=== PATIENT | male | born 1980 | race Hispanic/Latino ===

== ENCOUNTER 2021-11-19 04:09 | Emergency (ER) | payer OTHER ==
--- NOTE | 2021-11-19 06:44 | ER ---
Nurse's Notes [facility] Name: Van Escobedo Age: 41 yrs Sex: Male : 1980 Arrival Date: 11/19/2021 Time: 04:12 Bed Waiting Private MD: Diagnosis: Presentation: 11/19 04:30 Chief complaint: Patient states: he woke up around 0200 with right sided pain and jb4 difficulty breathing. Coronavirus screen: At this time, the client does not indicate any symptoms associated with coronavirus-19. Ebola Screen: No symptoms or risks identified at this time. Initial Sepsis Screen: Does the patient meet any 2 criteria? No. Patient's initial sepsis screen is negative. Does the patient have a suspected source of infection? No. Patient's initial sepsis screen is negative. Risk Assessment: Do you want to hurt yourself or someone else? Patient reports no desire to harm self or others. Onset of symptoms was November 19, 2021. 04:30 Method Of Arrival: Ambulatory jb4 04:30 Acuity: MINERVA 3 jb4 Triage Assessment: 04:31 General: Appears in no apparent distress. Behavior is calm, cooperative. Pain: jb4 Complains of pain in right side. Neuro: Level of Consciousness is awake, alert, obeys commands, Oriented to person, place, time, situation. Cardiovascular: Capillary refill < 3 seconds Patient's skin is warm and dry. Respiratory: Respiratory effort is even, unlabored, Respiratory pattern is regular. GI: No signs and/or symptoms were reported involving the gastrointestinal system. Derm: Skin is pink, warm \T\ dry. Musculoskeletal: Circulation, motion, and sensation intact. Historical: - Allergies: 04:31 peanuts; jb4 - Home Meds: 04:31 Hydrochlorothiazide Oral [Active]; jb4 - PMHx: 04:31 Hypertensive disorder; jb4 - PSHx: 04:31 None; jb4 - Immunization history:: Pfizer x 3. - Social history:: Smoking status: Patient reports the use of cigarette tobacco products, Patient uses alcohol, but reports only rare drinking. Patient/guardian denies using street drugs. Vital Signs: 04:30 BP 170 / 130; Pulse 81; Resp 18 S; Temp 98.3(O); Pulse Ox 100% on R/A; Weight 89.81 kg jb4 (R); Height 5 ft. 10 in. (177.80 cm) (R); Pain 5/10; 04:30 Body Mass Index 28.41 (89.81 kg, 177.80 cm) jb4 ED Course: 04:12 Patient arrived in ED. bp1 04:31 Triage completed. jb4 04:31 Arm band placed on Patient placed in waiting room, Patient notified of wait time. jb4 06:43 Patient's name was called from ER lobby. No response. Unable to locate patient. Will bb disposition as left without being seen by a provider. Administered Medications: No medications were administered Outcome: 06:43 Patient left the ED. bb Signatures: Veronica Rivera RN RN bb Phillip Knapp RN RN jb4 Daisy Knutson bp1 Corrections: (The following items were deleted from the chart) 04:32 04:31 Allergies: No Known Allergies; jb4 jb4
[2021-11-19 07:01] VITALS: BP 170/130; TEMP 98.3; O2SAT 100
== END 2021-11-19 06:43 | disposition left against medical advice (07) ==
LOC: ER 04:09
DX: R06.02 Shortness of breath (principal); I10 Essential (primary) hypertension; F17.210 Nicotine dependence, cigarettes, uncomplicated; Z53.21 Procedure and treatment not carried out due to patient leaving prior to being seen by health care provider
CPT/HCPCS: 99281

== ENCOUNTER 2023-02-19 20:33 | Emergency (ER) | payer OTHER ==
[2023-02-19] MEDS ORDERED: predniSONE 20 MG TAB ONE (21:06)
[2023-02-19 21:48] LABS: SARS-CoV-2 Antigen Rapid Res Negative (Negative)
--- NOTE | 2023-02-19 22:49 | ER ---
Nurse's Notes [facility] Name: Van Escobedo Age: 42 yrs Sex: Male : 1980 Arrival Date: 02/19/2023 Time: 20:33 Bed 13 Private MD: Diagnosis: Influenza due to other identified influenza virus with other respiratory manifestations Presentation: 02/19 21:06 Chief complaint: Patient states: sore throat and hoarseness that started today. as6 Coronavirus screen: At this time, the client does not indicate any symptoms associated with coronavirus-19. Ebola Screen: No symptoms or risks identified at this time. Initial Sepsis Screen: Does the patient meet any 2 criteria? No. Patient's initial sepsis screen is negative. Does the patient have a suspected source of infection? No. Patient's initial sepsis screen is negative. Risk Assessment: Do you want to hurt yourself or someone else? Patient reports no desire to harm self or others. Onset of symptoms was February 19, 2023. 21:06 Method Of Arrival: Ambulatory as6 21:06 Acuity: MINERVA 4 as6 Triage Assessment: 21:10 General: Appears in no apparent distress. Behavior is calm, cooperative, appropriate as6 for age. Pain: Complains of pain in throat. EENT: Reports pain when swallowing. Respiratory: Airway is patent Trachea midline Respiratory effort is even, unlabored, Respiratory pattern is regular, symmetrical. Historical: - Allergies: 21:07 peanuts; as6 - PMHx: 21:07 Hypertensive disorder; as6 - PSHx: 21:07 None; as6 - Immunization history:: Client reports receiving the 2nd dose of the Covid vaccine, pfizer. - Social history:: Smoking status: Patient reports the use of cigarette tobacco products, denies chronic smoking, but will smoke occasionally. - Family history:: not pertinent. - Hospitalizations: : No recent hospitalization is reported. Screenin:41 [facility] ED Fall Risk Assessment (Adult) Score/Fall Risk Level 0 - 2 = Low Risk. Abuse as6 screen: Denies threats or abuse. Denies injuries from another. Nutritional screening: No deficits noted. Tuberculosis screening: No symptoms or risk factors identified. Assessment: 23:23 General: Appears comfortable, well groomed, well developed, well nourished, Behavior is me1 calm, cooperative, appropriate for age, Reports feeling ill for sore throat and hoarseness that started today. Pain: Complains of pain in throat Pain currently is 5 out of 10 on a pain scale. Quality of pain is described as burning, tender, Pain began gradually, 4 hours ago. Is continuous. Neuro: Level of Consciousness is awake, alert, obeys commands, Oriented to person, place, time, situation, Appropriate for age. Cardiovascular: Capillary refill < 3 seconds Patient's skin is warm and dry. Respiratory: Airway is patent Respiratory effort is even, unlabored, Respiratory pattern is regular, symmetrical. Vital Signs: 21:06 BP 207 / 146; Pulse 94; Resp 18; Temp 99; Pulse Ox 94% ; Weight 94.35 kg; Height 5 ft. as6 10 in. ; Pain 0/10; 23:25 BP 187 / 106; Pulse 98; Resp 18; Pulse Ox 97% on R/A; me1 21:06 Body Mass Index 29.84 (94.35 kg, 177.8 cm) as6 21:06 Pain Scale: Adult as6 ED Course: 20:36 Patient arrived in ED. mr 20:43 Jose Tony MD is Attending Physician. rn 21:07 Triage completed. as6 21:07 Arm band placed on. as6 21:08 SARS RAPID Sent. as6 21:08 Strep Sent. as6 21:08 Flu Sent. as6 22:20 Jammie Ahumada, RN is Primary Nurse. me1 22:41 Bed in low position. Call light in reach. as6 23:23 Provided Education on: POC. Verbalized understanding.. me1 23:23 No provider procedures requiring assistance completed. Patient did not have IV access me1 during this emergency room visit. Administered Medications: 20:56 Drug: predniSONE PO 40 mg Route: PO; as6 23:08 Follow up: Response: No adverse reaction me1 23:08 Drug: Oseltamivir PO 75 mg Route: PO; me1 23:22 Follow up: Response: No adverse reaction me1 Medication: 23:23 VIS not applicable for this client. me1 Outcome: 22:49 Discharge ordered by . rn 23:25 Discharged to home ambulatory. me1 23:25 Condition: stable 23:25 Discharge instructions given to patient, Instructed on discharge instructions, follow up and referral plans. medication usage, Demonstrated understanding of instructions, follow-up care, medications, Prescriptions given X 1. 23:27 Patient left the ED. me1 Signatures: Irina Taveras Roman, MD MD rn Slawson, Ashby, RN RN as6 Jammie Ahumada RN RN me1
--- NOTE | 2023-02-19 22:49 | EDPHYS ---
Physician Documentation [facility] Name: Van Escobedo Age: 42 yrs Sex: Male : 1980 Arrival Date: 02/19/2023 Time: 20:33 Bed 13 Private MD: ED Physician Jose Tony HPI: 02/19 20:49 This 42 yrs old Male presents to ER via Unassigned with complaints of Sore rn Throat, Loss Voice. 20:49 The patient presents with sore throat. The patient describes throat pain as raw, rn scratchy. Onset: The symptoms/episode began/occurred yesterday. Severity of symptoms: At their worst the symptoms were mild, in the emergency department the symptoms are unchanged. Modifying factors: The symptoms are alleviated by nothing, the symptoms are aggravated by swallowing. The patient has not experienced similar symptoms in the past. 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 Has had a sore throat and itchy throat since yesterday. Able to breathe and swallow but a little discomfort when swallowing. Denies fever or cough. States COVID test at work was negative.. Historical: - Allergies: 21:07 peanuts; as6 - PMHx: 21:07 Hypertensive disorder; as6 - PSHx: 21:07 None; as6 - Immunization history:: Client reports receiving the 2nd dose of the Covid vaccine, pfizer. - Social history:: Smoking status: Patient reports the use of cigarette tobacco products, denies chronic smoking, but will smoke occasionally. - Family history:: not pertinent. - Hospitalizations: : No recent hospitalization is reported. ROS: 20:49 Constitutional: Negative for fever, chills, and weight loss, Eyes: Negative for injury, rn pain, redness, and discharge, ENT: Positive for sore throat Cardiovascular: Negative for chest pain, palpitations, and edema, Respiratory: Negative for shortness of breath, cough, wheezing, and pleuritic chest pain, Abdomen/GI: Negative for abdominal pain, nausea, vomiting, diarrhea, and constipation, MS/Extremity: Negative for injury and deformity, Skin: Negative for injury, rash, and discoloration, Neuro: Negative for headache, weakness, numbness, tingling, and seizure. Exam: 20:49 Constitutional: This is a well developed, well nourished patient who is awake, alert, rn and in no acute distress. Head/Face: Normocephalic, atraumatic. ENT: Mild pharyngeal erythema, no stridor, uvula midline Neck: Nontender cervical lymphadenopathy. No meningismus Cardiovascular: Regular rate and rhythm. No pulse deficits. Respiratory: No increased work of breathing, no retractions or nasal flaring. Skin: Warm, dry MS/ Extremity: Pulses equal, no cyanosis. Neuro: Awake and alert, GCS 15 Vital Signs: 21:06 BP 207 / 146; Pulse 94; Resp 18; Temp 99; Pulse Ox 94% ; Weight 94.35 kg; Height 5 ft. as6 10 in. ; Pain 0/10; 23:25 BP 187 / 106; Pulse 98; Resp 18; Pulse Ox 97% on R/A; me1 21:06 Body Mass Index 29.84 (94.35 kg, 177.8 cm) as6 21:06 Pain Scale: Adult as6 MDM: 20:43 Patient medically screened. rn 22:48 Differential diagnosis: group A strep tonsillitis, influenza, laryngitis, pharyngitis, rn upper respiratory infection, viral syndrome. Data reviewed: vital signs, nurses notes, lab test result(s), and as a result, I will discharge patient. Counseling: I had a detailed discussion with the patient and/or guardian regarding the historical points, exam findings, and any diagnostic results supporting the discharge/admit diagnosis, lab results, the need for outpatient follow up, to return to the emergency department if symptoms worsen or persist or if there are any questions or concerns that arise at home. Special discussion: I discussed with the patient/guardian in detail that at this point there is no indication for admission to the hospital. It is understood, however, that if the symptoms persist or worsen the patient needs to return immediately for re-evaluation. 02/19 20:47 Order name: SARS RAPID; Complete Time: 22:46 as6 02/19 20:47 Order name: Strep as02/19 20:47 Order name: Flu; Complete Time: 22:46 02/19 21:48 Order name: Throat Culture EDMS Administered Medications: 20:56 Drug: predniSONE PO 40 mg Route: PO; as6 23:08 Follow up: Response: No adverse reaction me1 23:08 Drug: Oseltamivir PO 75 mg Route: PO; me1 23:22 Follow up: Response: No adverse reaction me1 Disposition Summary: 02/19/23 22:49 Discharge Ordered Location: Home rn Problem: new rn Symptoms: have improved rn Condition: Stable rn Diagnosis - Influenza due to other identified influenza virus with other respiratory rn manifestations Followup: rn - With: Private Physician - When: As needed - Reason: Recheck today's complaints, Re-evaluation by your physician Discharge Instructions: - Discharge Summary Sheet rn - Influenza, Adult rn Forms: - Medication Reconciliation Form rn - Thank You Letter rn - Antibiotic rn neurosurgical - Prescription Opioid Use rn - Patient Portal Instructions rn - Leadership Thank You Letter rn - Work release form me1 Prescriptions: - Tamiflu 75 mg Oral Capsule - take 1 tablet by ORAL route every 12 hours for 5 days; 10 tablet; Refills: 0, rn Product Selection Permitted Signatures: Dispatcher [employer] Jose Soares MD MD rn Slawson, Ashby RN RN as6 Jammie Ahumada RN RN me1
[2023-02-19] MEDS ORDERED: OSELTAMIVIR 75 MG CAP PO ONE (23:13)
[2023-02-20 00:19] VITALS: TEMP 99
[2023-02-20 00:20] VITALS: BP 187/106; O2SAT 97
== END 2023-02-19 23:27 | disposition home or self-care (01) ==
LOC: ER 20:33
DX: J10.1 Influenza due to other identified influenza virus with other respiratory manifestations (principal); Z20.822 Contact with and (suspected) exposure to COVID-19
CPT/HCPCS: 87070; 36415; 87081; 87804 ×2; 87811; J7512; 99283

== ENCOUNTER → 2023-07-29 | Emergency (ER) | payer OTHER ==
[~2023-07-29] MED LIST: ASPIRIN 81 MG CHEWABLE TABLET ONE; LORazepam 2 MG/ML VIAL ONE
[2023-07-29 08:14] LABS: Absolute Lymphocytes (CBC) 2.3 K/uL (0.7-4.9); Hematocrit 38.5 % (39.6-49.0); Lymphocytes % 30.1 % (15.3-44.8); MCV 87.3 fL (80-100); MPV 7.5 fL (7.6-11.3); Platelets 327 thou/uL (152-406); RBC Red Blood Cell Count 4.41 M/uL (4.33-5.43)
[2023-07-29 08:33] LABS: Magnesium 2.3 mg/dL (1.6-2.4); Potassium 3.9 mEq/L (3.5-5.1); Troponin High Sensitivity 4.3 pg/mL (<58.9)
--- NOTE | 2023-07-29 10:58 | RAD REPORT ---
EXAM DESCRIPTION: RAD - Chest Single View - 07/29/2023 8:53 am CLINICAL HISTORY: CHEST PAIN Chest pain. COMPARISON: No comparisons FINDINGS: Portable technique limits examination quality. The lungs are grossly clear. The heart is normal in size. No displaced fractures. IMPRESSION: No acute intrathoracic process suspected.
--- NOTE | 2023-07-29 11:09 | ER ---
Nurse's Notes [facility] Name: Van Escobedo Age: 43 yrs Sex: Male : 1980 Arrival Date: 07/29/2023 Time: 07:47 Bed 18 Private MD: Diagnosis: Chest pain, unspecified Presentation: 07/29 07:54 Chief complaint: Patient states: Mid CP with SOB awoke him out of sleep mat 0430 AM. No ll1 fever or cough. Coronavirus screen: Client denies travel out of the [place] in the last 14 days. difficulty breathing, muscle pain, shortness of breath, Client presents with at least one sign or symptom that may indicate coronavirus-19. Standard/surgical mask placed on the client. Ebola Screen: Patient denies travel to an Ebola-affected area in the 21 days before illness onset. Initial Sepsis Screen: Does the patient meet any 2 criteria? No. Patient's initial sepsis screen is negative. Does the patient have a suspected source of infection? No. Patient's initial sepsis screen is negative. Risk Assessment: Do you want to hurt yourself or someone else? Patient reports no desire to harm self or others. Onset of symptoms was July 29, 2023. 07:54 Method Of Arrival: Ambulatory ll1 07:54 Acuity: MINERVA 3 ll1 Triage Assessment: 07:56 General: Appears uncomfortable, Behavior is cooperative, appropriate for age. Pain: ll1 Complains of pain in mid chest Quality of pain is described as aching. Cardiovascular: Reports chest pain, shortness of breath. Historical: - Allergies: 07:54 peanuts; ll1 - PMHx: 07:54 Hypertensive disorder; Hypercholesterolemia; ll1 - Immunization history:: Adult Immunizations up to date. - Social history:: Smoking status: Reported history of juuling and/or vaping. Screenin:02 [facility] ED Fall Risk Assessment (Adult) History of falling in the last 3 months, mb9 including since admission No falls in past 3 months (0 pts) Confusion or Disorientation No (0 pts) Intoxicated or Sedated No (0 pts) Impaired Gait No (0 pts) Mobility Assist Device Used No (0 pt) Altered Elimination No (0 pt) Score/Fall Risk Level 0 - 2 = Low Risk Oriented to surroundings, Maintained a safe environment, Educated pt \T\ family on fall prevention, incl call for assistance when getting out of bed. Abuse screen: Denies threats or abuse. Nutritional screening: No deficits noted. Tuberculosis screening: No symptoms or risk factors identified. Assessment: 08:03 General: Appears uncomfortable, Behavior is anxious. Pain: Complains of pain in chest mb9 Pain does not radiate. Pain currently is 7 out of 10 on a pain scale. Quality of pain is described as heavy, pressure, Pain began suddenly, Is continuous. Neuro: [place] Agitation-Sedation Scale (RASS): 0 - Alert and Calm Level of Consciousness is awake, alert, obeys commands, Oriented to person, place, time, situation, Appropriate for age. Cardiovascular: Reports chest pain, shortness of breath, Heart tones S1 S2 present Patient's skin is warm and dry. Rhythm is regular. Respiratory: Reports shortness of breath Airway is patent Respiratory effort is even, unlabored, Respiratory pattern is regular, symmetrical, Breath sounds are clear bilaterally. GI: Abdomen is round non-distended, Bowel sounds present X 4 quads. Abd is soft and non tender X 4 quads. Patient currently denies nausea. : No signs and/or symptoms were reported regarding the genitourinary system. EENT: No signs and/or symptoms were reported regarding the EENT system. Derm: Skin is pink, warm \T\ dry. Musculoskeletal: Range of motion: intact in all extremities. 09:06 Reassessment: Patient and/or family updated on plan of care and expected duration. Pain mb9 level reassessed. Patient is alert, oriented x 3, equal unlabored respirations, skin warm/dry/pink. Patient states feeling better. Patient states symptoms have improved. 10:45 Reassessment: No changes from previously documented assessment. Patient and/or family mb9 updated on plan of care and expected duration. Pain level reassessed. Patient is alert, oriented x 3, equal unlabored respirations, skin warm/dry/pink. 11:14 Reassessment: Patient and/or family updated on plan of care and expected duration. Pain mb9 level reassessed. Patient is alert, oriented x 3, equal unlabored respirations, skin warm/dry/pink. Patient states feeling better. Patient states symptoms have improved. Vital Signs: 07:54 BP 178 / 120; Pulse 71; Resp 22; Temp 97.8; Pulse Ox 100% on R/A; Pain 7/10; ll1 08:04 Weight 99.79 kg; Height 5 ft. 9 in. ; mb9 08:30 BP 159 / 123; Pulse 58; Resp 16; Pulse Ox 100% on R/A; mb9 09:44 BP 141 / 111; Pulse 60; Resp 18; Pulse Ox 100% on R/A; mb9 11:14 BP 138 / 98; Pulse 62; Resp 18; Pulse Ox 100% on R/A; mb9 08:04 Body Mass Index 32.49 (99.79 kg, 175.26 cm) mb9 07:54 Pain Scale: Adult ll1 ED Course: 07:49 Patient arrived in ED. rg4 07:50 Paresh Adame DO is Attending Physician. ms3 07:50 EKG done, by ED staff, reviewed by Paresh Adame DO. Inserted saline lock: 18 gauge in mb9 right antecubital area, using aseptic technique. Blood collected. 07:51 Irina Morris, RN is Primary Nurse. mb9 07:54 Arm band placed on Patient placed in an exam room, on a stretcher. ll1 07:56 Triage completed. ll1 08:03 Placed in gown. Bed in low position. Call light in reach. Side rails up X 1. Client mb9 placed on continuous cardiac and pulse oximetry monitoring. NIBP monitoring applied. surveillance monitor on. 08:03 No provider procedures requiring assistance completed. Patient maintains SpO2 mb9 saturation greater than 95% on room air. 08:55 XRAY Chest (1 view) In Process Unspecified. EDMS 11:09 IV discontinued, intact, bleeding controlled, No redness/swelling at site. Pressure mb9 dressing applied. Administered Medications: 08:09 Drug: Aspirin PO Chewable Tablet 324 mg PO once; 81 mg tablets x 4 Route: PO; mb9 09:44 Follow up: Response: No adverse reaction mb9 11:07 Not Given (Physician Discretion): ativan1 mg IVP once mb9 Medication: 08:05 VIS not applicable for this client. mb9 Outcome: 11:08 Discharge ordered by . ms3 11:14 Discharged to home ambulatory, mb9 11:14 Condition: stable 11:14 Discharge instructions given to patient, Instructed on discharge instructions, follow up and referral plans. Demonstrated understanding of instructions, follow-up care, 11:14 Patient left the ED. mb9 Signatures: Dispatcher [employer] EDMS Elaina Correa rg4 Raz Melendez RN RN ll1 Paresh Adame DO DO ms3 Irina Morris, RN RN mb9 Corrections: (The following items were deleted from the chart) 08:02 07:54 Pulse 71bpm; Resp 22bpm; Pulse Ox 100% RA; Temp 97.8F; Pain 7/10, Adult; ll1 ll1 08:30 08:16 BP 165 / 125; Pulse 64bpm; Resp 18bpm; Pulse Ox 100% RA; mb9 mb9
--- NOTE | 2023-07-29 11:09 | EDPHYS ---
Physician Documentation [facility] Name: Van Escobedo Age: 43 yrs Sex: Male : 1980 Arrival Date: 07/29/2023 Time: 07:47 Bed 18 Private MD: ED Physician Paresh Adame HPI: 07/29 08:10 This 43 yrs old Male presents to ER via Ambulatory with complaints of Chest ms3 Pain. 08:10 43-year-old male with past medical history of hypertension, hyperlipidemia [place] [facility] [place] for chest pain that began at 430 that awoke him from sleep. Patient states pain is a 7/10 located the middle of his chest. Patient denies nausea or vomiting. Patient endorses shortness of breath. Patient states sitting makes his discomfort better. Patient denies inciting factors. Historical: - Allergies: 07:54 peanuts; ll1 - PMHx: 07:54 Hypertensive disorder; Hypercholesterolemia; ll1 - Immunization history:: Adult Immunizations up to date. - Social history:: Smoking status: Reported history of juuling and/or vaping. ROS: 08:10 Constitutional: Negative for fever, and chills. Neck: Negative for injury, pain, and ms3 swelling, 08:10 Abdomen/GI: Negative for abdominal pain, nausea, vomiting, diarrhea, and constipation, MS/Extremity: Negative for injury and deformity, 08:10 Skin: Negative for injury, rash, and discoloration, Neuro: Negative for headache, weakness, numbness, tingling. 08:10 Cardiovascular: Positive for chest pain, 08:10 Respiratory: Positive for shortness of breath, Exam: 08:10 Constitutional: This is a well developed, well nourished patient who is awake, alert, ms3 and in no acute distress. Head/Face: Normocephalic, atraumatic. Eyes: Pupils equal round and reactive to light, extra-ocular motions intact. Lids and lashes normal. Conjunctiva and sclera are non-icteric and not injected. Periorbital areas with no swelling, redness, or edema. Neck: Trachea midline, no cervical lymphadenopathy. Supple, full range of motion without nuchal rigidity, or vertebral point tenderness. No Meningismus. Chest/axilla: Normal chest wall appearance and motion. Nontender with no deformity. Cardiovascular: Regular rate and rhythm with a normal S1 and S2. No gallops, murmurs, or rubs. Normal PMI, no JVD. No pulse deficits. Respiratory: Lungs have equal breath sounds bilaterally, clear to auscultation and percussion. No rales, rhonchi or wheezes noted. No increased work of breathing, no retractions or nasal flaring. Abdomen/GI: Soft, non-tender, with normal bowel sounds. No distension or tympany. No guarding or rebound. No evidence of tenderness throughout. Skin: Warm, dry with normal turgor. Normal color with no rashes, no lesions, and no evidence of cellulitis. MS/ Extremity: Pulses equal, no cyanosis. Neurovascular intact. Full, normal range of motion. 08:10 ECG was reviewed by the Attending Physician. Vital Signs: 07:54 BP 178 / 120; Pulse 71; Resp 22; Temp 97.8; Pulse Ox 100% on R/A; Pain 7/10; ll1 08:04 Weight 99.79 kg; Height 5 ft. 9 in. ; mb9 08:30 BP 159 / 123; Pulse 58; Resp 16; Pulse Ox 100% on R/A; mb9 09:44 BP 141 / 111; Pulse 60; Resp 18; Pulse Ox 100% on R/A; mb9 11:14 BP 138 / 98; Pulse 62; Resp 18; Pulse Ox 100% on R/A; mb9 08:04 Body Mass Index 32.49 (99.79 kg, 175.26 cm) mb9 07:54 Pain Scale: Adult ll1 MDM: 08:04 Patient medically screened. ms3 08:10 Differential diagnosis: acute myocardial infarction, coronary artery disease chest wall ms3 pain, pulmonary embolus. The patient was given aspirin in the Emergency Department. Scoring Tools PERC Rule for PE Age > /= 50 No (0) HR > /= 100 No (0) O2 Sat Room Air < 95% No (0) Unilateral leg swelling No (0) Hemoptysis No (0) Recent surgery or trauma </= 4 weeks ago, requiring treatment with General Anesthesia No (0) Prior PE or DVT No (0) Hormone use No (0). 11:08 HEART Score: History: Slightly Suspicious (0), ECG: Normal (0), Age: < or = 45 years ms3 (0), Risk Factors: 1 or 2 risk factors (1), [Hypercholesterolemia] [Hypertension] Troponin: < or = 1 x Normal Limit (0), Total Score = 1. Data reviewed: vital signs, nurses notes, lab test result(s), EKG, radiologic studies, and as a result, I will discharge patient. Consideration of Admission/Observation Escalation of care including admission/observation considered. HEART score = 1. I considered the following discharge prescriptions or medication management in the emergency department Medications were administered in the Emergency Department. See MAR. Independent interpretation of the following test(s) in the Emergency Department EKG: See my EKG interpretation above X-Ray: My interpretation is CXR image reviewed by me does not reveal pna or pulmonary edema. Care significantly affected by the following chronic conditions: Hypertension. Counseling: I had a detailed discussion with the patient and/or guardian regarding the historical points, exam findings, and any diagnostic results supporting the discharge/admit diagnosis, lab results, radiology results, the need for outpatient follow up, to return to the emergency department if symptoms worsen or persist or if there are any questions or concerns that arise at home. Special discussion: Based on the patient's history, exam, and Dx evaluation, there is no indication for emergent intervention or inpatient Tx. It is understood by the patient/guardian that if the Sx's persist or worsen they need to return immediately for re-evaluation. ED course: Discussed labs, chest x-ray, EKG with patient and his mother. Patient follow-up with primary care physician in 2 to 3 days. They understand and agree with plan. All questions were answered. Return precautions discussed include worsening symptoms, or any other concerns. On reevaluation patient is alert and orient x 4, no apparent distress, nontoxic-appearing, ambulatory in emergency room, speaking full sentences. 07/29 08:04 Order name: Basic Metabolic Panel; Complete Time: 08:34 ms3 07/29 08:04 Order name: CBC with Diff; Complete Time: 08:34 ms3 07/29 08:04 Order name: Magnesium; Complete Time: 08:34 ms3 07/29 08:04 Order name: Troponin HS; Complete Time: 08:34 ms3 07/29 08:04 Order name: XRAY Chest (1 view); Complete Time: 11:02 ms3 07/29 08:04 Order name: EKG; Complete Time: 08:04 ms3 07/29 08:04 Order name: Cardiac monitoring; Complete Time: 08:05 ms3 07/29 08:04 Order name: EKG - Nurse/Tech; Complete Time: 08:05 ms3 07/29 08:04 Order name: IV Saline Lock; Complete Time: 08:05 ms3 07/29 08:04 Order name: Labs collected and sent; Complete Time: 08:05 ms3 07/29 08:04 Order name: O2 Per Protocol; Complete Time: 08:05 ms3 07/29 08:04 Order name: O2 Sat Monitoring; Complete Time: 08:05 ms3 EC:10 Rhythm is regular. QRS [place] is Normal. [place] interval is normal. QRS interval is normal. ms3 Clinical impression: Normal ECG. Interpreted by me. Reviewed by me. Administered Medications: 08:09 Drug: Aspirin PO Chewable Tablet 324 mg PO once; 81 mg tablets x 4 Route: PO; mb9 09:44 Follow up: Response: No adverse reaction mb9 11:07 Not Given (Physician Discretion): ativan1 mg IVP once mb9 Disposition Summary: 07/29/23 11:08 Discharge Ordered Notes: Location: Home ms3 Condition: Stable ms3 Diagnosis - Chest pain, unspecified ms3 Discharge Instructions: - Discharge Summary Sheet ms3 - Nonspecific Chest Pain, Adult ms3 Forms: - Medication Reconciliation Form ms3 - Thank You Letter ms3 - Antibiotic Education ms3 - Prescription Opioid Use ms3 - Patient Portal Instructions ms3 - Leadership Thank You Letter ms3 Signatures: Dispatcher [employer] Raz Das RN RN ll1 Paresh Adame DO DO ms3 Irina Morris RN RN mb9
[2023-07-29 11:39] VITALS: BP 138/98; TEMP 97.8; O2SAT 100
== END ==
LOC: ER 07:47
DX: R07.9 Chest pain, unspecified (principal); I10 Essential (primary) hypertension; Z91.010 Allergy to peanuts
CPT/HCPCS: 36415; 71045; 80048; 83735; 84484; 85025; 93005

== ENCOUNTER 2023-09-08 02:54 | Emergency (ER) | payer OTHER ==
[2023-09-08] MEDS ORDERED: ONDANSETRON 4 MG/2 ML VIAL ONE (03:04)
[2023-09-08] MEDS ORDERED: MORPHINE 4 MG/ML SYR ONE (03:05)
[2023-09-08] MEDS ORDERED: FAMOTIDINE 20 MG/2 ML VIAL IV ONE (03:05)
[2023-09-08 03:36] LABS: Absolute Eosinophils 0.1 K/uL (0-0.5); Absolute Monocytes 0.5 K/uL (0.1-1.3); Absolute Neutrophil 5.3 K/uL (1.8-8.0); Basophils % 0.5 % (0-1.3); Eosinophils % 1.6 % (0-4.4); Hemoglobin 12.4 g/dL (13.6-17.9); Lymphocytes % 33.7 % (15.3-44.8); MCH 29.8 pg (27.0-35.0); MCHC 34.3 g/dL (32.0-36.0); MCV 86.9 fL (80-100); MPV 8.2 fL (7.6-11.3); Monocytes % 5.9 % (3.3-12.3); Neutrophils % 58.3 % (41.7-73.7); Platelets 332 thou/uL (152-406); RBC Red Blood Cell Count 4.15 M/uL (4.33-5.43); Red Cell Distribution Width 13.5 % (12.1-15.2)
[2023-09-08 03:48] LABS: PT Prothrombin Time 10.1 SECONDS (9.5-12.5); Protime INR 0.92
[2023-09-08 03:59] LABS: Anion Gap 9.2 mEq/L (5.0-15.0); Potassium 3.2 mEq/L (3.5-5.1); Troponin High Sensitivity 3.7 pg/mL (<58.9)
--- NOTE | 2023-09-08 05:53 | ER ---
Nurse's Notes [facility] Name: Van Escboedo Age: 43 yrs Sex: Male : 1980 Arrival Date: 09/08/2023 Time: 02:54 Bed 4 Private MD: Diagnosis: Chest pain, unspecified Presentation: 09/07 03:00 Chief complaint: Patient states: intermittent squeezing substernal chest pain of 8 with pf1 SOB,onset 0200. Patient stated the pain started while sleeping. 03:00 Coronavirus screen: Client denies travel out of the [place] in the last 14 days. At this pf1 time, the client does not indicate any symptoms associated with coronavirus-19. Ebola Screen: Patient negative for fever greater than or equal to 101.5 degrees Fahrenheit, and additional compatible Ebola Virus Disease symptoms. Initial Sepsis Screen: Does the patient meet any 2 criteria? No. Patient's initial sepsis screen is negative. Does the patient have a suspected source of infection? No. Patient's initial sepsis screen is negative. Risk Assessment: Do you want to hurt yourself or someone else? Patient reports no desire to harm self or others. Onset of symptoms was September 08, 2023 at 02:00. 03:00 Method Of Arrival: Wheelchair pf1 03:00 Acuity: MINERVA 2 pf1 Triage Assessment: 03:00 General: Appears in no apparent distress. uncomfortable, well groomed, well developed, pf1 Behavior is cooperative, anxious. 03:00 Pain: Complains of pain in chest. Cardiovascular: Reports chest pain, shortness of pf1 breath, Capillary refill < 3 seconds Patient's skin is warm and dry. Respiratory: Reports shortness of breath with Chest pain. Historical: - Allergies: 03:08 peanuts; pf1 - PMHx: 03:08 Hypercholesterolemia; Hypertensive disorder; pf1 - PSHx: 03:08 None; pf1 - Immunization history:: Adult Immunizations up to date, 3 doses of pfizer Last tetanus immunization: < 5 years ago Flu vaccine is not up to date. - Social history:: Smoking status: Patient reports the use of cigarette tobacco products, denies chronic smoking, but will smoke occasionally, Patient uses alcohol, occasionally. Patient/guardian denies using street drugs. - Family history:: not pertinent. - Hospitalizations: : No recent hospitalization is reported. Screenin:18 [facility] ED Fall Risk Assessment (Adult) History of falling in the last 3 months, ha1 including since admission No falls in past 3 months (0 pts) Confusion or Disorientation No (0 pts) Intoxicated or Sedated No (0 pts) Impaired Gait No (0 pts) Mobility Assist Device Used No (0 pt) Altered Elimination No (0 pt) Score/Fall Risk Level 0 - 2 = Low Risk Oriented to surroundings, Maintained a safe environment, Educated pt \T\ family on fall prevention, incl call for assistance when getting out of bed, Hourly rounding (assess needs \T\ fall precautionary measures) done. Abuse screen: Denies threats or abuse. Denies injuries from another. Nutritional screening: No deficits noted. Tuberculosis screening: No symptoms or risk factors identified. Assessment: 03:00 General: Appears uncomfortable, Behavior is calm, cooperative. Pain: Complains of pain ha1 in anterior aspect of right upper chest Pain does not radiate. Pain currently is 8 out of 10 on a pain scale. Quality of pain is described as stabbing, throbbing, Pain began suddenly, 1 hour ago. Is continuous. Neuro: Level of Consciousness is awake, alert, obeys commands, Oriented to person, place, time, situation. Cardiovascular: Reports chest pain, Capillary refill < 3 seconds Patient's skin is warm and dry. Rhythm is sinus rhythm. Respiratory: Airway is patent Respiratory effort is even, unlabored, Respiratory pattern is regular, symmetrical. GI: No signs and/or symptoms were reported involving the gastrointestinal system. : No signs and/or symptoms were reported regarding the genitourinary system. Derm: Skin is pink, warm \T\ dry. Musculoskeletal: Circulation, motion, and sensation intact. Range of motion: intact in all extremities. 03:50 Reassessment: Patient and/or family updated on plan of care and expected duration. Pain ha1 level reassessed. Patient is alert, oriented x 3, equal unlabored respirations, skin warm/dry/pink. pain 5/10 Patient states feeling better. Patient states symptoms have improved. 05:00 Reassessment: Patient and/or family updated on plan of care and expected duration. Pain ha1 level reassessed. Patient is alert, oriented x 3, equal unlabored respirations, skin warm/dry/pink. Patient states feeling better. Patient states symptoms have improved. Vital Signs: 03:00 BP 164 / 120; Pulse 91; Resp 20; Temp 98; Pulse Ox 99% on R/A; Weight 102.06 kg; Height pf1 5 ft. 10 in. ; Pain 8/10; 03:14 BP 147 / 114; Pulse 85; Resp 17 S; Pulse Ox 99% on R/A; ha1 03:50 BP 149 / 114; Pulse 78; Resp 17 S; Pulse Ox 96% on R/A; ha1 03:00 Body Mass Index 32.28 (102.06 kg, 177.8 cm) pf1 03:00 Pain Scale: Adult pf1 ED Course: 02:47 EKG done, by ED staff, reviewed by Jose Tony MD. pf1 03:00 Patient arrived in ED. rn 03:00 Jose Tony MD is Attending Physician. rn 03:00 Patient has correct armband on for positive identification. Placed in gown. Bed in low ha1 position. Call light in reach. Side rails up X 1. 03:00 Arm band placed on right wrist. ha1 03:06 Client placed on continuous cardiac and pulse oximetry monitoring. NIBP monitoring kmf applied. property assessment monitor on. 03:06 Initial lab(s) drawn, by me, sent to lab. Inserted saline lock: 20 gauge in left kmf antecubital area, using aseptic technique. Blood collected. 03:08 Triage completed. pf1 03:12 XRAY Chest (1 view) In Process Unspecified. EDMS 03:13 Basic Metabolic Panel Sent. ha1 03:13 CBC with Diff Sent. ha1 03:13 NT PRO-BNP Sent. ha1 03:13 PT-INR Sent. ha1 03:13 Troponin HS Sent. ha1 03:18 Provided Education on: medication administration . ha1 03:[address] via stretcher. cm10 04:05 CT Chest For PE Angio In Process Unspecified. EDMS 04:[address] Patient [address] back from [address]. cm10 06:45 No provider procedures requiring assistance completed. IV discontinued, intact, jw7 bleeding controlled, No redness/swelling at site. Pressure dressing applied. Administered Medications: 03:08 Drug: Famotidine IVP 20 mg IVP once; dilute with 10 mL 0.9% NaCl; give over 2 minutes ha1 Route: IVP; Site: left antecubital; 06:45 Follow up: Response: No adverse reaction; Marked relief of symptoms jw7 03:10 Drug: Ondansetron IVP 4 mg IVP once; over 2 minutes Route: IVP; Site: left antecubital; ha1 06:45 Follow up: Response: No adverse reaction; Marked relief of symptoms jw7 03:12 Drug: morphine IVP or IV 4 mg IVP once over 4 mins Route: IVP; Infused Over: 4 mins; ha1 Site: left antecubital; 06:45 Follow up: Response: No adverse reaction; Marked relief of symptoms jw7 Medication: 03:17 VIS not applicable for this client. ha1 Outcome: 05:53 Discharge ordered by . alexsandra 06:45 Discharged to home ambulatory, jw7 06:45 Condition: stable 06:45 Discharge instructions given to patient, Instructed on discharge instructions, follow up and referral plans. medication usage, Demonstrated understanding of instructions, follow-up care, medications, Prescriptions given X 1, 06:46 Patient left the ED. jw7 Signatures: Dispatcher [employer] EDMS Jose Tony MD MD rn Waits, Jodi, RN RN jw7 Magdalene Rob RN RN ha1 Finley, Pamala, RN RN pf1 Brii Wilkins RN ALEXSANDRA 10 Jacqueline Mas [facility] Corrections: (The following items were deleted from the chart) 03:10 03:00 Chief complaint: Patient states: intermittent squeezing substernal chest pain of pf1 8,onset 0200. Patient stated the pain started while sleeping. pf1 03:26 03:06 EKG done, by ED staff, reviewed by Jose Tony MD [facility] pf1
--- NOTE | 2023-09-08 05:53 | EDPHYS ---
Physician Documentation [facility] Name: Van Escobedo Age: 43 yrs Sex: Male : 1980 Arrival Date: 09/08/2023 Time: 02:54 Bed 4 Private MD: ED Physician Jose Tony HPI: 09/07 03:02 This 43 yrs old Male presents to ER via Unassigned with complaints of chest rn pain. 03:02 The patient or guardian reports chest pain that is located primarily in the substernal rn area. Onset: 1 hour(s) ago. The pain does not radiate. Associated signs and symptoms: Pertinent positives: shortness of breath, Pertinent negatives: abdominal pain, cough, palpitations, syncope. The chest pain is described as a heaviness. Duration: The patient or guardian reports a single episode. Modifying factors: The symptoms are alleviated by nothing. the symptoms are aggravated by nothing. Severity of pain: At its worst the pain was moderate in the emergency department the pain is unchanged. The patient has experienced a previous episode. Patient reports substernal chest pain, feels like a vice is around him, began 1 hour ago, not getting better or worse. States had this a month ago without clear etiology and discharged home. No family history of early cardiac disease. Denies drugs or alcohol. No trauma. No history of DVT or PE. Patient states was at rest at home when this began.. Historical: - Allergies: 03:08 peanuts; pf1 - PMHx: 03:08 Hypercholesterolemia; Hypertensive disorder; pf1 - PSHx: 03:08 None; pf1 - Immunization history:: Adult Immunizations up to date, 3 doses of pfizer Last tetanus immunization: < 5 years ago Flu vaccine is not up to date. - Social history:: Smoking status: Patient reports the use of cigarette tobacco products, denies chronic smoking, but will smoke occasionally, Patient uses alcohol, occasionally. Patient/guardian denies using street drugs. - Family history:: not pertinent. - Hospitalizations: : No recent hospitalization is reported. ROS: 03:04 Constitutional: Negative for fever, chills, and weight loss, Eyes: Negative for injury, rn pain, redness, and discharge, Neck: Negative for injury, pain, and swelling, Cardiovascular: Positive for chest pain Respiratory: Positive for shortness of breath Abdomen/GI: Negative for abdominal pain, nausea, vomiting, diarrhea, and constipation, MS/Extremity: Negative for injury and deformity, Skin: Negative for injury, rash, and discoloration, Neuro: Negative for headache, weakness, numbness, tingling, and seizure, Exam: 03:04 Constitutional: This is a well developed, well nourished patient who is awake, alert, rn appears uncomfortable and hyperventilating Head/Face: Normocephalic, atraumatic. Neck: Trachea midline, no masses palpated, and no cervical lymphadenopathy. Supple, full range of motion without nuchal rigidity, or vertebral point tenderness. No Meningismus. Cardiovascular: Regular rate and rhythm. No pulse deficits. Respiratory: No increased work of breathing, no retractions or nasal flaring. Abdomen/GI: Soft, non-tender MS/ Extremity: Pulses equal, no cyanosis. Neurovascular intact. Full, normal range of motion. Equal circumference. Neuro: Awake and alert, GCS 15 03:20 ECG was reviewed by the Attending Physician. rn Vital Signs: 03:00 BP 164 / 120; Pulse 91; Resp 20; Temp 98; Pulse Ox 99% on R/A; Weight 102.06 kg; Height pf1 5 ft. 10 in. ; Pain 8/10; 03:14 BP 147 / 114; Pulse 85; Resp 17 S; Pulse Ox 99% on R/A; ha1 03:50 BP 149 / 114; Pulse 78; Resp 17 S; Pulse Ox 96% on R/A; ha1 03:00 Body Mass Index 32.28 (102.06 kg, 177.8 cm) pf1 03:00 Pain Scale: Adult pf1 MDM: 03:00 Patient medically screened. rn 05:51 Differential diagnosis: acute myocardial infarction, acute pericarditis, anxiety, rn coronary artery disease chest wall pain, costochondritis, esophagitis, gastritis, gastroesophageal reflux disease (GERD), pancreatitis, pleurisy, pneumonia, pneumothorax, pulmonary embolus. HEART Score: History: Slightly Suspicious (0), ECG: Normal (0), Age: < or = 45 years (0), Risk Factors: 1 or 2 risk factors (1), Troponin: < or = 1 x Normal Limit (0), Total Score = 1. Data reviewed: vital signs, nurses notes, lab test result(s), EKG, radiologic studies, CT scan, plain films, and as a result, I will discharge patient. Counseling: I had a detailed discussion with the patient and/or guardian regarding the historical points, exam findings, and any diagnostic results supporting the discharge/admit diagnosis, lab results, radiology results, the need for outpatient follow up, to return to the emergency department if symptoms worsen or persist or if there are any questions or concerns that arise at home. Response to treatment: the patient's symptoms have markedly improved after treatment, and as a result, I will discharge patient. Special discussion: Based on the patient's history, exam, and Dx evaluation, there is no indication for emergent intervention or inpatient Tx. It is understood by the patient/guardian that if the Sx's persist or worsen they need to return immediately for re-evaluation. I discussed with the patient/guardian in detail that at this point there is no indication for admission to the hospital. It is understood, however, that if the symptoms persist or worsen the patient needs to return immediately for re-evaluation. Based on the history and exam findings, there is no indication for further emergent testing or inpatient evaluation. I discussed with the patient/guardian the need to see the machine gun mechanic for further evaluation of the symptoms. I discussed with the patient/guardian the need to see the primary care provider for further evaluation of the symptoms. ED course: No acute findings and workup. CT PE negative. Troponin negative x 2 and went down on repeat troponin. ECG without ischemia. Patient markedly improved and resting comfortably. Will discharge home with return precautions and follow-up with PCP and urged to make cardiology appointment.. 05:53 ED course: Patient states these episodes tend to happen at nighttime, suffers from acid rn reflux, worse when laying down. Possibility of acid reflux so we will discharge home with Protonix and recommend GI follow-up as well.. 09/07 03:00 Order name: Basic Metabolic Panel; Complete Time: 04:05 rn 09/07 03:00 Order name: CBC with Diff; Complete Time: 03:56 rn 09/07 03:00 Order name: NT PRO-BNP; Complete Time: 04:05 rn 09/07 03:00 Order name: PT-INR; Complete Time: 03:56 rn 09/07 03:00 Order name: Troponin HS; Complete Time: 04:05 rn 09/07 04:52 Order name: Troponin High Sensitivity; Complete Time: 05:46 rn 09/07 03:00 Order name: XRAY Chest (1 view) rn 09/07 03:00 Order name: CT Chest For PE Angio rn 09/07 03:00 Order name: Cardiac monitoring; Complete Time: 03:13 rn 09/07 03:00 Order name: EKG - Nurse/Tech; Complete Time: 03:13 rn 09/07 03:00 Order name: IV Saline Lock; Complete Time: 03:13 rn 09/07 03:00 Order name: Labs collected and sent; Complete Time: 03:13 rn 09/07 03:00 Order name: O2 Per Protocol; Complete Time: 03:13 rn 09/07 03:00 Order name: O2 Sat Monitoring; Complete Time: :13 rn EC:20 Rate is 90 beats/min. Rhythm is regular. QRS [place] is Normal. [place] interval is normal. QRS rn interval is normal. QT interval is normal. No Q waves. T waves are Normal. No ST changes noted. Clinical impression: Normal ECG and NSR w/ Non-specific ST/T Changes. Interpreted by me. Reviewed by me. Administered Medications: 03:08 Drug: Famotidine IVP 20 mg IVP once; dilute with 10 mL 0.9% NaCl; give over 2 minutes ha1 Route: IVP; Site: left antecubital; 06:45 Follow up: Response: No adverse reaction; Marked relief of symptoms jw7 03:10 Drug: Ondansetron IVP 4 mg IVP once; over 2 minutes Route: IVP; Site: left antecubital; ha1 06:45 Follow up: Response: No adverse reaction; Marked relief of symptoms jw7 03:12 Drug: morphine IVP or IV 4 mg IVP once over 4 mins Route: IVP; Infused Over: 4 mins; ha1 Site: left antecubital; 06:45 Follow up: Response: No adverse reaction; Marked relief of symptoms jw7 Disposition Summary: 09/08/23 05:53 Discharge Ordered Notes: Location: Home rn Problem: new rn Symptoms: have improved rn Condition: Stable rn Diagnosis - Chest pain, unspecified rn Followup: rn - With: Private Physician - When: As needed - Reason: Recheck today's complaints, Re-evaluation by your physician Discharge Instructions: - Discharge Summary Sheet rn - Nonspecific Chest Pain, Adult rn - Pain Without a Known Cause rn Forms: - Medication Reconciliation Form rn - Thank You Letter rn - Antibiotic returned goods repairer - Prescription Opioid Use rn - Patient Portal Instructions rn - Leadership Thank You Letter rn Prescriptions: - Protonix 40 mg Oral Tablet - take 1 tablet ORAL route once daily; 30 tablet; Refills: 0, Product Selection rn Permitted Signatures: Dispatcher [employer] EDMS Jose Tony MD MD rn Ayala, Heidy RN RN ha1 Chrystal Wade RN RN pf1 Juanita Correa RN jw7 Corrections: (The following items were deleted from the chart) 03:00 03:00 Chest Single View+RAD.RAD.BRZ ordered. EDMS EDMS 03:01 03:01 Chest For PE Angio+CT.RAD.BRZ ordered. EDMS EDMS 04:52 04:52 Troponin High Sensitivity+C.LAB.BRZ ordered. EDMS EDMS
--- NOTE | 2023-09-08 11:03 | RAD REPORT ---
EXAM DESCRIPTION: CT - Chest For Pe Angio - 09/08/2023 6:51 am CLINICAL HISTORY: CHEST PAIN COMPARISON: None Available TECHNIQUE: Contiguous axial images of the chest were obtained from the thoracic inlet to the level o f the upper abdomen after the administration of intravenous contrast followed by reconstruction image s. Volume rendering images were performed. This exam was performed according to our departmental dose-optimization program, which includes autom ated exposure control, adjustment of the mA and/or kV according to patient size and/or use of iterati ve reconstruction technique. FINDINGS: The aorta is of normal contour and tapering. There is no discrete filling defect within th e pulmonary arterial system to suggest pulmonary emboli. There is no pericardial or pleural fluid col lection. There is no parenchymal consolidation or pneumothorax. Limited images of the upper abdomen a re within normal limits. Linear opacities within the lungs may represent scar versus subsegmental ate lectasis. IMPRESSION: No acute intrathoracic abnormality. Electronically signed by: Sancho Blackwell MD 09/08/2023 04:32 AM CDT Due to temporary technical issues with the PACS/Fluency reporting system, reports are being signed by the in house radiologist without review as a courtesy to ensure prompt reporting. The interpreting r adiologist is fully responsible for the content of the report.
--- NOTE | 2023-09-08 11:08 | RAD REPORT ---
EXAM DESCRIPTION: RAD - Chest Single View - 09/08/2023 3:10 am CLINICAL HISTORY: CHEST PAIN COMPARISON: None FINDINGS: Cardiac silhouette is within normal limits. EKG leads project over the chest. There is no focal parenchymal or pleural disease. There is no acute osseous process visualized. IMPRESSION: No evidence of acute cardiopulmonary disease. Electronically signed by: Sancho Blackwell MD 09/08/2023 03:36 AM CDT Due to temporary technical issues with the PACS/Fluency reporting system, reports are being signed by the in house radiologist without review as a courtesy to ensure prompt reporting. The interpreting r adiologist is fully responsible for the content of the report.
[2023-09-08 12:09] VITALS: TEMP 98
[2023-09-08 12:57] VITALS: BP 149/114; O2SAT 96
--- NOTE | 2023-09-08 13:37 | EKG ---
Test Date: 2023-09-08 Test Time: 02:47:57 Solidworks Drafter: LILY MEASUREMENT RESULTS: Intervals: Rate: 90 NC: 170 QRSD: 92 QT: 368 QTc: 450 Curtis: P: 72 NC: 170 QRS: 72 T: 61 INTERPRETIVE STATEMENTS: Normal sinus rhythm Normal ECG Compared to ECG 07/29/2023 07:56:22 No significant changes Electronically Signed On 09-08-23 13:36:08 CDT by Ellis Guidry
== END 2023-09-08 06:46 | disposition home or self-care (01) ==
LOC: ER 02:54
DX: R07.9 Chest pain, unspecified (principal); I10 Essential (primary) hypertension; F17.210 Nicotine dependence, cigarettes, uncomplicated; Z91.010 Allergy to peanuts
CPT/HCPCS: 93005; 85025; 80048; 36415; 85610; 84484 ×2; 83880; 71275; 71045; 96375; 96374; 99285; Q9967; J2405

== ENCOUNTER 2025-03-15 05:48 | Emergency (ER) | payer SELFPAY ==
[2025-03-15] MEDS ORDERED: ONDANSETRON 4 MG/2 ML VIAL ONE (06:22)
[2025-03-15] MEDS ORDERED: MORPHINE 4 MG/ML SYR ONE (06:25)
[2025-03-15] MEDS ORDERED: ASPIRIN 81 MG CHEWABLE TABLET ONE (06:26)
[2025-03-15 06:42] LABS: Absolute Lymphocytes (CBC) 1.2 K/uL (0.7-4.9); Hematocrit 45.1 % (39.6-49.0); Hemoglobin 15.5 g/dL (13.6-17.9); MCH 29.8 pg (27.0-35.0); MCHC 34.4 g/dL (32.0-36.0); MCV 86.5 fL (80-100); MPV 7.8 fL (7.6-11.3); Nucleated RBC Absolute Count 0.0 (0-0); Nucleated Red Blood Cells % 0.2 % (0-0); RBC Red Blood Cell Count 5.22 M/uL (4.33-5.43); White Blood Count 11.00 thou/uL (4.3-10.9)
[2025-03-15 06:47] LABS: PT Prothrombin Time 12.5 SECONDS (10-13.0); Protime INR 1.11
[2025-03-15 07:00] LABS: Influenza A Ag Negative; Influenza B Ag Negative; SARS-CoV-2 Antigen Rapid Res Negative (Negative)
[2025-03-15 07:05] LABS: ALT/SGPT 33 U/L (16-61); Albumin 3.8 g/dL (3.4-5.0); Albumin/Globulin Ratio 0.9 (1.1-1.8); Alkaline Phosphatase 54 U/L (45-117); Anion Gap 9.5 mEq/L (5.0-15.0); BUN Blood Urea Nitrogen 19 mg/dL (7-18); Globulin 4.1 g/dL (2.3-3.5); Glucose Level 121 mg/dL (74-106); NT PRO-BNP 24 pg/mL (<125)
[2025-03-15 07:06] LABS: AST/SGOT 21 U/L (15-37); Bilirubin Indirect, Calculated 0.6 mg/dL (0.2-0.8); Magnesium 2.4 mg/dL (1.6-2.4); Potassium 4.5 mEq/L (3.5-5.1); Troponin High Sensitivity < 3.0 pg/mL (<58.9)
--- NOTE | 2025-03-15 07:52 | RAD REPORT ---
EXAM: CTA of the chest, abdomen and pelvis HISTORY: Chest pain and back pain chest pain COMPARISON: None TECHNIQUE: Multiple contiguous axial images were obtained a CTA of the chest and abdomen with contras t per aortic dissection protocol. This involves 3D reconstructions, MIPs, volume rendered images and/or shaded surface rendering. One or more of the following dose reduction techniques were used: Au tomated exposure control, adjustment of the mA and/or kV according to patient size, and/or iterative reconstruction. Unless otherwise specified, incidental findings do not require dedicated im aging follow-up. Sagittal and coronal 3-D MIP reformats were performed. FINDINGS: PULMONARY ARTERIES: Normal in caliber without filling defects to suggest pulmonary emboli. ASCENDING THORACIC AORTA: Normal caliber without evidence of dissection or aneurysmal dilatation. DESCENDING THORACIC AORTA: Normal caliber without evidence of dissection or aneurysmal dilatation. ABDOMINAL AORTA: Normal caliber without evidence of dissection or aneurysmal dilatation. CELIAC TRUNK: Patent. SMA: Patent MARY JANE: Patent RENAL ARTERIES: Large left renal artery ostial mixed plaque results in the left renal artery stenosis . No right-sided renal artery stenosis. MEDIASTINUM: No hilar or mediastinal lymphadenopathy. LUNGS: No focal infiltrates or masses. PLEURAL SPACE: No pleural effusion or pneumothorax. LIVER: Mild fatty liver.. Cholelithiasis. SPLEEN: Unremarkable. PANCREAS: Unremarkable. KIDNEYS: Unremarkable. ADRENALS: Unremarkable. BOWEL: No bowel obstruction, free fluid or free air.. Small fat-containing umbilical hernia. RETROPERITONEUM: No lymphadenopathy. BONES: Degenerative changes in the spine. IMPRESSION: No evidence of thoracic or abdominal aortic aneurysm or dissection. Cholelithiasis. Significant left renal artery stenosis.
--- NOTE | 2025-03-15 08:06 | RAD REPORT ---
EXAMINATION: ONE VIEW CHEST XR CLINICAL INDICATION: CHEST PAIN TECHNIQUE: Frontal chest projection is submitted. Examination is limited by patient positioning and t echnique. COMPARISON: 11/26/2024 FINDINGS: The lungs are well inflated and clear. The heart is upper limit of normal in size. No displaced fract ures identified. IMPRESSION: No acute intrathoracic abnormalities.
--- NOTE | 2025-03-15 08:15 | ER ---
Nurse's Notes [facility] Name: Van Escobedo Age: 45 yrs Sex: Male : 1980 Arrival Date: 03/15/2025 Time: 05:48 Bed 6 Private MD: Diagnosis: Esophageal reflux, vomiting, shortness of breath Presentation: 03/15 06:18 Chief complaint: Patient states: pt reports chest pain that began at 314 this morning, kb4 "it feels like when i was diagnosed with GERD". Coronavirus screen: At this time, unable to obtain information related to travel outside the [place] Ebola Screen: No symptoms or risks identified at this time. No acute neurological deficit is noted. Pre-hospital glucose is not applicable to this patient. Initial Sepsis Screen: Does the patient meet any 2 criteria? No. Patient's initial sepsis screen is negative. Does the patient have a suspected source of infection? No. Patient's initial sepsis screen is negative. Risk Assessment: Do you want to hurt yourself or someone else? Patient reports no desire to harm self or others. Onset of symptoms was March 15, 2025 at 03:14. 06:18 Method Of Arrival: Ambulatory kb4 06:18 Acuity: MINERVA 3 kb4 Triage Assessment: 06:21 The onset of the patients symptoms was March 15, 2025 at 03:14. General: Appears in kb4 no apparent distress. comfortable, Behavior is calm, cooperative. Pain: Complains of pain in diaphragm and xiphoid area Pain does not radiate. Pain currently is 8 out of 10 on a pain scale. Neuro: Level of Consciousness is awake, alert, obeys commands, Oriented to person, place, time, situation, Reports weakness. Cardiovascular: Patient's skin is warm and dry. Respiratory: Airway is patent Respiratory effort is even, unlabored, Respiratory pattern is regular, symmetrical. GI: Abdomen is flat. : No signs and/or symptoms were reported regarding the genitourinary system. Derm: No signs and/or symptoms reported regarding the dermatologic system. Musculoskeletal: No signs and/or symptoms reported regarding the musculoskeletal system. Historical: - Allergies: 06:21 peanuts; kb4 - Immunization history:: Adult Immunizations up to date. - Infectious Disease History:: Denies. - Social history:: Smoking status: Patient denies any tobacco usage or history of. - Family history:: not pertinent. Screenin:32 [facility] ED Fall Risk Assessment (Adult) History of falling in the last 3 months, kd3 including since admission No falls in past 3 months (0 pts) Confusion or Disorientation No (0 pts) Intoxicated or Sedated No (0 pts) Impaired Gait No (0 pts) Mobility Assist Device Used No (0 pt) Altered Elimination No (0 pt) Score/Fall Risk Level 0 - 2 = Low Risk Maintained a safe environment. Abuse screen: Denies threats or abuse. Denies injuries from another. Nutritional screening: No deficits noted. Tuberculosis screening: No symptoms or risk factors identified. Assessment: 06:31 General: Appears in no apparent distress. Behavior is calm, cooperative. Pain: kd3 Complains of pain in chest and xiphoid area. Pain: Pain currently is 8 out of 10 on a pain scale. Neuro: Level of Consciousness is awake, alert, obeys commands, Oriented to person, place, time, situation. Cardiovascular: Capillary refill < 3 seconds Patient's skin is warm and dry. Respiratory: Airway is patent Trachea midline Respiratory effort is even, unlabored, Respiratory pattern is regular, symmetrical. Vital Signs: 06:18 BP 172 / 117; Pulse 61; Resp 18; Temp 98.1; Pulse Ox 99% ; Weight 93.44 kg; Height 5 kb4 ft. 10 in. ; Pain 8/10; 06:39 BP 142 / 117; Pulse 68; Resp 18 S; Pulse Ox 98% on R/A; ha1 07:32 BP 139 / 96; Pulse 58; Resp 17; Pulse Ox 98% on R/A; dd2 08:51 BP 136 / 93; Pulse 51; Resp 16; Pulse Ox 97% ; dd2 06:18 Body Mass Index 29.56 (93.44 kg, 177.8 cm) kb4 06:18 Pain Scale: Adult kb4 Yana Coma Score: 06:36 Eye Response: spontaneous(4). Motor Response: obeys commands(6). Verbal Response: sp4 oriented(5). Total: 15. ED Course: 05:51 Patient arrived in ED. gm2 05:58 Richard Hill MD is Attending Physician. sp4 06:08 Gracie Brasher RN is Primary Nurse. kd3 06:21 Triage completed. kb4 06:21 Arm band placed on. kb4 06:23 XRAY Chest (1 view) In Process Unspecified. EDMS 06:27 EKG done, by ED staff. kb4 06:30 No provider procedures requiring assistance completed. Inserted saline lock: 20 gauge kd3 in right antecubital area, using aseptic technique. Blood collected. Flushed with 10 mL NS. 07:04 Attending Physician role handed off by Richard Hill MD sp3 07:04 Wendy Lindsey MD is Attending Physician. sp3 07:28 CT Aorta for Dissection In Process Unspecified. EDMS 08:14 Juan Stark MD is Referral Physician. sp3 08:51 Patient has correct armband on for positive identification. Provided Education on: D/C dd2 EDUCATION . 09:00 IV discontinued, intact, bleeding controlled, No redness/swelling at site. Pressure dd2 dressing applied. Administered Medications: 06:29 Drug: Aspirin PO Chewable Tablet 324 mg PO once; 81 mg tablets x 4 Route: PO; kd3 06:40 Follow up: Response: No adverse reaction; Marked relief of symptoms ha1 06:30 Drug: Ondansetron IVP 8 mg IVP once; over 2 minutes Route: IVP; Site: right antecubital;kd3 06:41 Follow up: Response: No adverse reaction; Marked relief of symptoms ha1 06:30 Drug: morphine IVP or IV 4 mg IVP once over 4 mins Route: IVP; Infused Over: 4 mins; kd3 Site: right antecubital; 06:40 Follow up: Response: No adverse reaction; Marked relief of symptoms; Pain is decreased; ha1 RASS: Alert and Calm (0) 08:17 Not Given (Physician Discretion): clonidine0.2 mg PO once dd2 08:51 Not Given (Physician Discretion): ns 0.9% 1000 ml IV at 1 bolus Per protocol; to be dd2 given as a bolus over 60 minutes Medication: 06:32 VIS not applicable for this client. kd3 Outcome: 08:14 Discharge ordered by . sp3 09:00 Discharged to home ambulatory, dd2 09:00 Condition: stable 09:00 Discharge instructions given to patient, Instructed on discharge instructions, follow up and referral plans. medication usage, Demonstrated understanding of instructions, follow-up care, medications, Prescriptions given X 1, 09:02 Patient left the ED. dd2 Signatures: Dispatcher [employer] EDMS Wendy Lindsey MD MD sp3 Gracie Brasher RN RN kd3 Magdalene Rob RN RN ha1 Richard Hill MD MD sp4 Tamara Lea gm2 WOLF VANESSA RN RN dd2 Shania Painter RN RN kb4 Corrections: (The following items were deleted from the chart) : 06:21 PMHx: Hypertensive disorder; kb4 kb4 : 06:21 PMHx: Hypercholesterolemia; kb4 kb4
--- NOTE | 2025-03-15 08:15 | EDPHYS ---
Physician Documentation [facility] Name: Van Escobedo Age: 45 yrs Sex: Male : 1980 Arrival Date: 03/15/2025 Time: 05:48 Bed 6 Private MD: ED Physician Wendy Lindsey HPI: 03/15 06:30 This 45 yrs old Male presents to ER via Ambulatory with complaints of sp4 Weakness, Shortness Of Breath, Nausea/Vomiting. 06:36 45-year-old male presents with acute onset moderate to severe midsternal chest pain sp4 starting at 330 this morning. Associated with shortness of breath and cold sweats and nausea. Historical: - Allergies: 06:21 peanuts; kb4 - Immunization history:: Adult Immunizations up to date. - Infectious Disease History:: Denies. - Social history:: Smoking status: Patient denies any tobacco usage or history of. - Family history:: not pertinent. ROS: 06:36 Constitutional: Negative for fever, chills, and weight loss, positive chest pain, sp4 positive diaphoresis, positive shortness of breath 06:36 All other systems are negative, Exam: 06:36 Constitutional: This is a well developed, well nourished patient who is awake, alert, sp4 and in no acute distress. Head/Face: Normocephalic, atraumatic. Eyes: Pupils equal round and reactive to light, extra-ocular motions intact. Lids and lashes normal. Conjunctiva and sclera are not injected. Cornea within normal limits. Periorbital areas with no swelling, redness, or edema. ENT: Nares patent. No nasal discharge, no septal abnormalities noted. Tympanic membranes are normal and external auditory canals are clear. Oropharynx with no redness, swelling, or masses, exudates, or evidence of obstruction, uvula midline. Mucous membranes moist. Neck: Trachea midline, no thyromegaly or masses palpated, and no cervical lymphadenopathy. Supple, full range of motion without nuchal rigidity, or vertebral point tenderness. Chest/axilla: Normal chest wall appearance and motion. Nontender with no deformity. No lesions are appreciated. Cardiovascular: Regular rate and rhythm with a normal S1 and S2. No gallops, murmurs, or rubs. No pulse deficits. Respiratory: Lungs have equal breath sounds bilaterally, clear to auscultation and percussion. No rales, rhonchi or wheezes noted. No increased work of breathing, no retractions or nasal flaring. Abdomen/GI: Soft, with normal bowel sounds. No distension or tympany. No guarding or rebound. No evidence of tenderness throughout. Back: No spinal tenderness. No costovertebral tenderness. Skin: Warm, dry with normal turgor. Normal color with no rashes, no lesions, and no evidence of cellulitis. MS/ Extremity: Pulses equal, no cyanosis. Neurovascular intact. Full, normal range of motion. Neuro: Awake and alert, GCS 15, oriented to person, place, time, and situation. Cranial nerves II-XII grossly intact. Motor strength 5/5 in all extremities. Sensory grossly intact. Psych: Awake, alert, with orientation to person, place and time. Behavior, mood, and affect are within normal limits 06:36 ECG was reviewed by the Attending Physician. EKG at 0 615 sinus bradycardia rate 56 otherwise normal Vital Signs: 06:18 BP 172 / 117; Pulse 61; Resp 18; Temp 98.1; Pulse Ox 99% ; Weight 93.44 kg; Height 5 kb4 ft. 10 in. ; Pain 8/10; 06:39 BP 142 / 117; Pulse 68; Resp 18 S; Pulse Ox 98% on R/A; ha1 07:32 BP 139 / 96; Pulse 58; Resp 17; Pulse Ox 98% on R/A; dd2 08:51 BP 136 / 93; Pulse 51; Resp 16; Pulse Ox 97% ; dd2 06:18 Body Mass Index 29.56 (93.44 kg, 177.8 cm) kb4 06:18 Pain Scale: Adult kb4 [place] Coma Score: 06:36 Eye Response: spontaneous(4). Motor Response: obeys commands(6). Verbal Response: sp4 oriented(5). Total: 15. MDM: 05:59 Medical Screening Exam initiated sp4 06:38 Data reviewed: vital signs, nurses notes, lab test result(s), EKG, radiologic studies, sp4 CT scan. Consideration of Admission/Observation Escalation of care including admission/observation considered. Transition of care: After a detail discussion of the patient's case, care is transferred to Wendy Lindsey MD. 07:21 ED course: Patient taken over by me from nighttime physician. 45-year-old male presents sp3 with shortness of breath, nausea and vomiting and symptoms of esophageal reflux. Patient states that he was on omeprazole OTC for a while which had helped but then some doctor told him that he should only be on it for 1 month and he subsequently stopped. His symptoms recurred. He has not had recent endoscopy. Current orders include a CT aortogram which results are pending. If negative we will discharge patient home and have instructed patient to resume his omeprazole and follow-up with GI. I have also reviewed all the labs.. 08:13 ED course: Full workup negative. Will safely discharge patient home at this time.. sp3 03/15 05:59 Order name: Basic Metabolic Panel; Complete Time: 07:07 sp4 03/15 05:59 Order name: CBC with Diff; Complete Time: 07:04 sp4 03/15 05:59 Order name: LFT's; Complete Time: 07:07 sp4 03/15 05:59 Order name: Magnesium; Complete Time: 07:07 sp4 03/15 05:59 Order name: NT PRO-BNP; Complete Time: 07:07 sp4 03/15 05:59 Order name: PT-INR; Complete Time: 07:04 sp4 03/15 05:59 Order name: Troponin HS; Complete Time: 07:07 sp4 03/15 05:59 Order name: COVID-19 Ag + Flu A+B Ag; Complete Time: 07:04 sp4 03/15 06:35 Order name: Lipase; Complete Time: 07:04 sp4 03/15 05:59 Order name: XRAY Chest (1 view); Complete Time: 08:06 sp4 03/15 06:35 Order name: CT Aorta for Dissection; Complete Time: 08:06 sp4 03/15 05:59 Order name: Cardiac monitoring; Complete Time: 06:29 sp4 03/15 05:59 Order name: EKG - Nurse/Tech; Complete Time: 06:23 sp4 03/15 05:59 Order name: IV Saline Lock; Complete Time: 06:31 sp4 03/15 05:59 Order name: Labs collected and sent; Complete Time: 06:29 sp4 03/15 05:59 Order name: O2 Per Protocol; Complete Time: 06:30 sp4 03/15 05:59 Order name: O2 Sat Monitoring; Complete Time: 06:30 sp4 EC:15 Rate is 56 beats/min. Rhythm is regular, Sinus bradycardia. QRS [place] is Normal. VT sp4 interval is normal. QRS interval is normal. QT interval is normal. No Q waves. T waves are Normal. No ST changes noted. Clinical impression: Normal ECG. Interpreted by me. Reviewed by me. Administered Medications: 06:29 Drug: Aspirin PO Chewable Tablet 324 mg PO once; 81 mg tablets x 4 Route: PO; kd3 06:40 Follow up: Response: No adverse reaction; Marked relief of symptoms ha1 06:30 Drug: Ondansetron IVP 8 mg IVP once; over 2 minutes Route: IVP; Site: right antecubital;kd3 06:41 Follow up: Response: No adverse reaction; Marked relief of symptoms ha1 06:30 Drug: morphine IVP or IV 4 mg IVP once over 4 mins Route: IVP; Infused Over: 4 mins; kd3 Site: right antecubital; 06:40 Follow up: Response: No adverse reaction; Marked relief of symptoms; Pain is decreased; ha1 RASS: Alert and Calm (0) 08:17 Not Given (Physician Discretion): clonidine0.2 mg PO once dd2 08:51 Not Given (Physician Discretion): ns 0.9% 1000 ml IV at 1 bolus Per protocol; to be dd2 given as a bolus over 60 minutes Disposition: 03/16 00:51 Chart complete. sp4 Disposition Summary: 03/15/25 08:14 Discharge Ordered Notes: Location: Home sp3 Condition: Stable sp3 Diagnosis - Esophageal reflux, vomiting, shortness of breath sp3 Followup: sp3 - With: Juan Stark MD - When: Upon discharge from the Emergency Department - Reason: Continuance of care Discharge Instructions: - Discharge Summary Sheet sp3 - Gastroesophageal Reflux Disease, Adult sp3 Forms: - Medication Reconciliation Form sp3 - Antibiotic Education sp3 - Prescription Opioid Use sp3 - Patient Portal Instructions sp3 - Leadership Thank You Letter sp3 Prescriptions: - Protonix 40 mg Oral Tablet - take 1 tablet ORAL route once daily; 30 tablet; Refills: 0, Product Selection sp3 Permitted Signatures: Dispatcher [employer] EDMS Wendy Lindsey MD MD sp3 Gracie Brasher RN RN kd3 Richard Hill MD MD sp4 Shania Painter, RN RN kb4 Magdalene Rob RN ha1 WOLF VANESSA RN dd2 Corrections: (The following items were deleted from the chart) 03/15 05:59 05:59 BASIC METABOLIC PANEL+C.LAB.BRZ ordered. EDMS EDMS 05:59 05:59 CBC+H.LAB.BRZ ordered. EDMS EDMS 05:59 05:59 HEPATIC FUNCTION+C.LAB.BRZ ordered. EDMS EDMS 05:59 05:59 MAGNESIUM+C.LAB.BRZ ordered. EDMS EDMS 05:59 05:59 PROBNP+C.LAB.BRZ ordered. EDMS EDMS 05:59 05:59 PROTIME (+INR)+COAG.LAB.BRZ ordered. EDMS EDMS 05:59 05:59 Troponin High Sensitivity+C.LAB.BRZ ordered. EDMS EDMS 05:59 05:59 Chest Single View+RAD.RAD.BRZ ordered. EDMS EDMS 05:59 05:59 COVID-19 Ag + Flu A+B Ag+I.LAB.BRZ ordered. EDMS EDMS 06:21 06:21 PMHx: Hypertensive disorder; kb4 kb4 06:21 06:21 PMHx: Hypercholesterolemia; kb4 kb4 06:36 06:36 LIPASE+C.LAB.BRZ ordered. EDMS EDMS
[2025-03-15 09:09] VITALS: TEMP 98.1
[2025-03-15 09:27] VITALS: BP 136/93; O2SAT 97
== END 2025-03-15 09:02 | disposition home or self-care (01) ==
LOC: ER 05:48
DX: K21.9 Gastro-esophageal reflux disease without esophagitis (principal); R11.10 Vomiting, unspecified; R06.02 Shortness of breath
CPT/HCPCS: 36415; 71045; 71275; 74175; 80048; 80076; 83690; 83735; 83880; 84484; 85025; 85610; 87428; 93005; 96374; 96375; 99284; J2405; Q9967